=== PATIENT | female | born 1930 | race African-American/Black ===

== ENCOUNTER 2016-10-21 20:26 | Emergency (ER) | payer MEDICARE ==
[~2016-10-21] VITALS: Ht 160 cm; Wt 87.5 kg
[2016-10-21] MEDS ORDERED: Nitroglycerin Subl 0.4mg tab (Bottle Of 25) SL PRN (20:30)
[2016-10-21] MEDS ORDERED: MELATONIN1 M2 PO (20:33)
[2016-10-21] MEDS ORDERED: CITALOPRAM HBR40 M1 ORAL (20:33)
[2016-10-21] MEDS ORDERED: ALBUTEROL2.5 MG/3 M INH (20:33)
--- NOTE | 2016-10-21 20:51 | Emergency Room Report ---
History of Present Illness General Chief Complaint: Chest Pain Source: Medical Record (TIGRE FELICIANO M.D.) Present Illness HPI 86-year-old female presents to ED for evaluation. Per EMS patient c/o chest pain which started approximately 30 minutes ago. Patient resides in a [facility] home. Patient states pain is midsternal, pressure-like, /. Nonradiating. Given aspirin and nitroglycerin with some improvement in pain. Per EMS patient is also being currently treated for pneumonia with Levaquin. Patient has a history of acute on chronic renal failure. No other aggravating relieving factors. Denies any other associated symptoms (TIGRE FELICIANO M.D.) Allergies: Coded Allergies: ISOSORBIDE (Verified Allergy, Unknown, 10/21/16) NSAIDS (NON-STEROIDAL ANTI-INFLAMMA (Verified Allergy, Unknown, 10/21/16) PENICILLINS (Verified Allergy, Unknown, 10/21/16) SULFA (SULFONAMIDE ANTIBIOTICS) (Verified Allergy, Unknown, 10/21/16) Patient History Past Medical History: DM, HTN, COPD Past Surgical History: none Pertinent Family History: none Social History: Denies: alcohol use, drug use, smoking Now: No Immunizations: UTD Reviewed Nursing Documentation: PMH: Agreed, PSxH: Agreed (TIGRE FELICIANO M.D.) Nursing Documentation-PMH Past Medical History: No History, Except For Hx Hypertension: Yes Hx COPD: Yes Hx Diabetes: Yes (TIGRE FELICIANO M.D.) Review of Systems All Other Systems: negative except mentioned in HPI (TIGRE FELICIANO M.D.) Physical Exam Vital Signs Date Time Temp Pulse Resp B/P Pulse Ox O2 Delivery O2 Flow Rate FiO2 10/21/16 20:19 90 21 139/63 100 Nasal Cannula 2.0 Sp02 EP Interpretation: reviewed, normal General Appearance: no apparent distress, alert, GCS 15, non-toxic Head: normocephalic, atraumatic Eyes: bilateral eye PERRL, bilateral eye normal inspection ENT: hearing grossly normal, normal pharynx, no angioedema, normal voice Neck: full range of motion, supple/symm/no masses Respiratory: chest non-tender, lungs clear, normal breath sounds, speaking full sentences Cardiovascular #1: regular rate, rhythm, no edema Cardiovascular #2: 2+ carotid (R), 2+ carotid (L), 2+ radial (R), 2+ radial (L) , 2+ dorsalis pedis (R), 2+ dorsalis pedis (L) Gastrointestinal: normal bowel sounds, non tender, soft, non-distended, no guarding, no rebound Rectal: deferred Genitourinary: normal inspection, no CVA tenderness Musculoskeletal: back normal, gait/station normal, normal range of motion, non- tender Neurologic: alert, oriented x3, responsive, motor strength/tone normal, sensory intact, speech normal Psychiatric: judgement/insight normal, memory normal, mood/affect normal, no suicidal/homicidal ideation Reflexes: 3+ bicep (R), 3+ bicep (L), 3+ tricep (R), 3+ tricep (L), 3+ knee (R) , 3+ knee (L) Skin: normal color, no rash, warm/dry, well hydrated Lymphatic: no adenopathy (TIGRE FELICIANO M.D.) Medical Decision Making Diagnostic Impression: Primary Impression: ACS (acute coronary syndrome) Additional Impressions: Urinary tract infection Qualified Codes: N30.00 - Acute cystitis without hematuria Leukocytosis Qualified Codes: D72.829 - Elevated white blood cell count, unspecified ER Course Please see the above evaluation by Dr. Feliciano. The patient was allegedly improved with nitrates and also with a small dose of morphine. Due to the fact that she is leukocytosis and history of recent treatment for pneumonia Levaquin was begun. X-ray was significant for cardiomegaly without infiltrate. There is a possible small left effusion. Also urinalysis revealed pyuria. In discussion with Dr. Godwin is undertaken. As the patient was on coumadin, an INR was ordered. Patient complaining of CP and now states there was no relief with the initial treatment. Repeat EKG. Repeat EKG = nsr 76 - sinus arrhythmia, 1st degree AV block, otherwise normal EKG. Treating with morphine, mylanta and pepcid. INR = 2.5 Patient states still with significant pain. Dilaudid ordered. States no better but seems to be somewhat improved. Patient transferred to [facility]. Laboratory Tests Test 10/21/16 20:55 10/21/16 21:10 10/21/16 21:15 Sodium Level 129 mEQ/L (135-145) L Potassium Level 5.4 mEQ/L (3.4-4.9) H Chloride Level 99 mEQ/L (98-107) Carbon Dioxide Level 17 mEQ/L (20-30) L Anion Gap 13 (5-15) Blood Urea Nitrogen 57 mg/dL (7-23) H Creatinine 2.1 mg/dL (0.5-0.9) H Estimate Glomerular Filtration Rate mL/min (>60) Glucose Level 157 mg/dL (74-106) H Calcium Level 8.4 mg/dL (8.6-10.2) L Total Bilirubin < 0.2 mg/dL (0.0-1.2) Aspartate Amino Transferase (AST) 31 U/L (5-40) Alanine Aminotransferase (ALT) 30 U/L (3-33) Alkaline Phosphatase 56 U/L (35-104) Total Creatine Kinase 65 U/L (26-140) Creatine Kinase MB 3.6 ng/mL (< 3.8) Creatine Kinase MB Relative Index 5.5 Troponin I < 0.30 ng/mL (<=0.30) Pro-B-Type Natriuretic Peptide 1722 pg/mL (0-450) H Total Protein 5.3 g/dL (6.6-8.7) L Albumin 2.5 g/dL (3.5-5.2) L Globulin 2.8 g/dL Albumin/Globulin Ratio 0.8 (1.0-2.7) L Urine Color Pale yellow Urine Appearance Clear Urine pH 6 (4.5-8.0) Urine Specific [place] 1.010 (1.005-1.035) Urine Protein 4+ (NEGATIVE) H Urine Glucose (UA) 1+ (NEGATIVE) H Urine Ketones Negative (NEGATIVE) Urine Occult Blood 1+ (NEGATIVE) H Urine Nitrite Negative (NEGATIVE) Urine Bilirubin Negative (NEGATIVE) Urine Urobilinogen Normal MG/DL (0.0-1.0) Urine Leukocyte Esterase 3+ (NEGATIVE) H Urine RBC 2-4 /HPF (0 - 2) H Urine WBC 5-10 /HPF (0 - 2) H Urine Squamous Epithelial Cells Occasional /LPF Urine Bacteria Few /HPF (NONE) White Blood Count 17.6 K/UL (4.8-10.8) H Red Blood Count 2.85 M/UL (4.20-5.40) L Hemoglobin 8.5 G/DL (12.0-16.0) L Hematocrit 26.0 % (37.0-47.0) L Mean Corpuscular Volume 91 FL (80-99) Mean Corpuscular Hemoglobin 29.9 PG (27.0-31.0) Mean Corpuscular Hemoglobin Concent 32.8 G/DL (32.0-36.0) Red Cell Distribution Width 17.0 % (11.6-14.8) H Platelet Count 233 K/UL (150-450) Mean Platelet Volume 7.7 FL (6.5-10.1) Neutrophils (%) (Auto) 65.3 % (45.0-75.0) Lymphocytes (%) (Auto) 23.1 % (20.0-45.0) Monocytes (%) (Auto) 9.1 % (1.0-10.0) Eosinophils (%) (Auto) 1.7 % (0.0-3.0) Basophils (%) (Auto) 0.9 % (0.0-2.0) (Kurt Calderon M.D.) EKG Diagnostic Results Rate: normal Rhythm: NSR ST Segments: no acute changes ASA given to the pt in ED: No - given by ems (TIGRE FELICIANO M.D.) Rhythm Strip Diag. Results EP Interpretation: yes Rhythm: NSR, no PVC's, no ectopy (TIGRE FELICIANO M.D.) Chest X-Ray Diagnostic Results Chest X-Ray Diagnostic Results : Chest X-Ray Ordered: Yes # of Views/Limited/Complete: 1 View Indication: Chest Pain EP Interpretation: Yes Interpretation: no consolidation, no effusion, no pneumothorax, other - cardiomegally Impression: Other Interpreting ER Provider: Electronic signature Kurt Calderon MD (Kurt Calderon M.D.) Last Vital Signs Date Time Temp Pulse Resp B/P Pulse Ox O2 Delivery O2 Flow Rate FiO2 10/21/16 20:19 90 21 139/63 100 Nasal Cannula 2.0 Status: improved (TIGRE FELICIANO M.D.) Last Vital Signs Date Time Temp Pulse Resp B/P Pulse Ox O2 Delivery O2 Flow Rate FiO2 10/22/16 01:02 78 25 172/64 100 Room Air 78 10/22/16 01:01 98.6 10/21/16 21:09 2.0 Status: improved (Kurt Calderon M.D.) Disposition: XFER SHT-TRM HOSP Condition: Serious - stable for transfer TIGRE FELICIANO M.D. Oct 21, 2016 20:51 Kurt Calderon M.D. Oct 21, 2016 22:23
[2016-10-21] MEDS ORDERED: SPIRIVA18 MCG INH (20:55)
[2016-10-21] MEDS ORDERED: HUMULIN N100 UNIT/1 SUBQ (20:55)
[2016-10-21] MEDS ORDERED: PREDNISONE10 MG ORAL (20:55)
[2016-10-21] MEDS ORDERED: TRAZODONE HCL50 MG ORAL (20:55)
[2016-10-21] MEDS ORDERED: COUMADIN5 MG ORAL (20:55)
[2016-10-21] MEDS ORDERED: DULERA 100 MCG/13 GM INH (20:55)
[2016-10-21] MEDS ORDERED: LEVOTHYROXINE75 MCG ORAL (20:55)
[2016-10-21] MEDS ORDERED: PROCRIT20000 UNI2 SUBQ (20:55)
[2016-10-21] MEDS ORDERED: TRAMADOL HCL50 MG ORAL (20:55)
[2016-10-21] MEDS ORDERED: LIPITOR40 MG ORAL (20:55)
[2016-10-21] MEDS ORDERED: FERROUS SULFAT325 MG ORAL (20:55)
[2016-10-21] MEDS ORDERED: DILT-XR240 MG PO (20:55)
[2016-10-21] MEDS ORDERED: TERAZOSIN HCL1 MG ORAL (20:55)
[2016-10-21] MEDS ORDERED: SENNOSIDES8.6 MG ORAL (20:55)
[2016-10-21] MEDS ORDERED: HYDRALAZINE HCL50 MG ORAL (20:55)
[2016-10-21] MEDS ORDERED: FUROSEMIDE20 M1 ORAL (20:55)
[2016-10-21] MEDS ORDERED: SINGULAIR10 MG ORAL (20:55)
[2016-10-21] MEDS ORDERED: BISACODYL5 MG RECTAL (20:55)
[2016-10-21 21:09] VITALS: BP 129/59
[2016-10-21 21:29] LABS: BASOPHILS % (AUTO) 0.9 % (0.0-2.0); EOSINOPHILS % (AUTO) 1.7 % (0.0-3.0); LYMPHOCYTES % (AUTO) 23.1 % (20.0-45.0); MEAN CORPUSCULAR HEMOGLOBIN 29.9 PG (27.0-31.0); MEAN CORPUSCULAR HGB CONC 32.8 G/DL (32.0-36.0); MEAN CORPUSCULAR VOLUME 91 FL (80-99); MEAN PLATELET VOLUME 7.7 FL (6.5-10.1); MONOCYTES % (AUTO) 9.1 % (1.0-10.0); NEUTROPHILS % (AUTO) 65.3 % (45.0-75.0); PLATELET COUNT 233 K/UL (150-450); RED BLOOD COUNT 2.85 M/UL (4.20-5.40); WHITE BLOOD COUNT 17.6 K/UL (4.8-10.8)
[2016-10-21 21:40] LABS: TROPONIN I < 0.30 ng/mL (<=0.30)
[2016-10-21 21:43] LABS: ALANINE AMINOTRANSFERASE 30 U/L (3-33); ALBUMIN/GLOBULIN RATIO 0.8 (1.0-2.7); ANION GAP 13 (5-15); ASPARTATE AMINO TRANSFERASE 31 U/L (5-40); CALCIUM 8.4 mg/dL (8.6-10.2); CARBON DIOXIDE 17 mEQ/L (20-30); CHLORIDE 99 mEQ/L (98-107); CREATININE 2.1 mg/dL (0.5-0.9); HEMOLYSIS 4; POTASSIUM 5.4 mEQ/L (3.4-4.9); SODIUM 129 mEQ/L (135-145); TOTAL PROTEIN 5.3 g/dL (6.6-8.7)
[2016-10-21] MEDS ORDERED: Morphine Sulfate 4mg/ml Inj IVP ONE ×2 (21:45→23:30)
[2016-10-21 21:50] LABS: APPEARANCE,URINE CLEAR; KETONES,URINE NEGATIVE (NEGATIVE); LEUKOCYTE ESTERASE ,URINE 3+ (NEGATIVE); NITRITE,URINE NEGATIVE (NEGATIVE); PH,URINE 6 (4.5-8.0); PROTEIN,URINE 4+ (NEGATIVE); UROBILINOGEN,URINE NORMAL MG/DL (0.0-1.0)
[2016-10-21 21:53] LABS: CKMB 3.6 ng/mL (< 3.8)
[2016-10-21] MEDS ORDERED: Sodium Polystyrene Sulfonate 15gm Powder ORAL ONE (22:00)
[2016-10-21 22:06] LABS: BACTERIA,URINE FEW /HPF; SQUAMOUS EPITHELIAL CELL,UR OCCASIONAL /LPF (NONE/OCC)
[2016-10-21 22:30] VITALS: BP 158/59
[2016-10-21 22:44] LABS: INR 2.5 (0.9-1.1); PROTHROMBIN TIME 26.6 SEC (9.30-11.50)
[2016-10-21] MEDS ORDERED: Famotidine 20 MG/ 2ML VIAL IVP ONE (23:30)
[2016-10-21] MEDS ORDERED: Mylanta II UD 30ml ORAL ONE (23:30)
[2016-10-22] MEDS ORDERED: Hydromorphone 0.5mg/0.5ml inj IVP ONE (00:15)
[2016-10-22] MEDS ORDERED: Hydromorphone 0.5mg/0.5ml inj ONE (00:39)
[2016-10-22 01:01] VITALS: BP 172/64
[2016-10-22 01:02] VITALS: BP 172/64
--- NOTE | 2016-10-22 10:51 | Diagnostic Imaging Report ---
Indication: Chest pain Technique: One view of the chest Comparison: none Findings: There is retrocardiac consolidation. Left hemidiaphragm is obscured, pleural effusion likely. There is mild central bronchial wall thickening. The left upper lung, right lung and pleural space are clear. The heart is borderline enlarged Impression: Retrocardiac consolidation and likely left-sided pleural effusion Mild central bronchial wall thickening, could indicate bronchitis changes, acuity indeterminate This agrees with the preliminary interpretation provided by the emergency room physician
--- NOTE | 2016-10-22 16:06 | Cardiology Report ---
APPROVED REPORT EKG Measurement Heart [id number] Normal sinus rhythm Normal ECG
== END 2016-10-22 01:02 | disposition short-term general hospital (02) ==
LOC: EDBD 20:26 → EMR 20:36
DX: I24.9 Acute ischemic heart disease, unspecified (principal); N39.0 Urinary tract infection, site not specified; D72.829 Elevated white blood cell count, unspecified; E11.9 Type 2 diabetes mellitus without complications; I10 Essential (primary) hypertension; J44.9 Chronic obstructive pulmonary disease, unspecified; Z88.0 Allergy status to penicillin; Z88.2 Allergy status to sulfonamides; Z88.6 Allergy status to analgesic agent; Z88.8 Allergy status to other drugs, medicaments and biological substances
CPT/HCPCS: 36415; 71010; 80053; 81003; 82550; 82553; 83880; 84484; 85025; 85610; 93005; 96365; 96375; 99285; J1170; J1956; J2270; J7040; S0028